=== PATIENT | female | born 2000 | race Caucasian/White ===

== ENCOUNTER 2022-07-12 14:03 | Emergency (ER) | payer OTHER, SELFPAY ==
--- NOTE | 2022-07-12 14:21 | ED.WOUNDLAC ---
HPI - Wound/Laceration General Chief Complaint: Wound/Laceration Stated Complaint: left arm dog bite Time Seen by Provider: 07/12/22 14:20 Source: patient Mode of arrival: ambulatory Limitations: no limitations History of Present Illness HPI narrative: is a 22-year-old female presents from home after she tried to [place] break up an altercation between her dog and another and her dog snapped at her causing a small non gaping laceration to the anterior surface of her left wrist with mild swelling and tenderness, has good range of motion no numbness or tingling. The patient is not up-to-date with her tetanus. Onset (ago): hour(s) Extremity Location: Left: wrist ( 0.5 non gaping laceration) Place: home and outdoors Context: accidental Related Data Home Medications Medication Instructions Recorded Confirmed No Home Medications 07/12/22 07/12/22 Review of Systems Review of Systems: All systems reviewed & are unremarkable except as noted in HPI and below PMFSH Past Medical History Medical History Patient denies medical problems Exam Const: General: cooperative and anxious HENMT: Head: normal to inspection Ears: hearing grossly normal bilaterally Face and sinus: normal facial exam Mouth: Yes Normal oral and palatal mucosa present Throat: posterior oropharynx normal Eyes: General: appearance normal, both eyes and all related structures Visual Hernández: normal visual hernández by confrontation Alignment and Position: alignment normal Periorbital: periorbital findings normal Eyelids: eyelids normal Neck: Neck: normal visual inspection Thyroid: thyroid normal Carotids: normal carotid upstroke Chest: Chest palpation & inspection: normal inspection of the chest Resp: Effort & Inspection: normal respiratory effort Auscultation: clear to auscultation bilaterally Cardio: Jugular venous distension: no JVD Palpation: normal PMI Rate: regular rate Rhythm: regular rhythm GI: Inspection: normal to inspection Urinary Catheter: Urinary Catheter: patent and draining Skin: Wounds: wounds noted Neuro: General: oriented to person and oriented to place Extrem: Hand/finger images: 1. 0.5cm non gaping laceration Psych: Appearance: grossly normal Course Course Emergency Course: Dermabond was placed on the laceration site and patient updated with her tetanus. An antibiotic sent to her local pharmacy. Procedures Laceration Laceration 1: Date: 07/12/22 Time: 14:26 Site: upper extremity Side (If applicable): left Size (cm): 0.5 Description: linear Pre-repair: wound explored and irrigated ====== Skin Level ====== Skin layer closed with: dermabond ====== Subcutaneous Layer ====== ====== Muscle Layer ====== ====== Tendon Layer ====== Critical Care Time Critical Care Time Critical Care Time: No Discharge Plan Discharge Clinical Impression: Dog bite, Puncture wound Patient Disposition: Home, Self-Care Condition: Stable Instructions: Antibiotic Form, Animal Bite (ED), Puncture Wound (ED) Additional Instructions: take medicine as prescribed and follow-up with primary care physician if symptoms persist or worsen. Prescriptions: New sulfamethoxazole-trimethoprim [Bactrim DS] 800-160 mg tablet 1 tablet PO Q12H Qty: 20 0RF No Action No Home Medications Follow-up/Referrals: UNKNOWN,DOCTOR [Primary Care Provider] - Time of Disposition: :
[2022-07-12] MEDS: TETANUS,DIPHTHERIA,AC PERTUSSIS ADULT 0.5 ML (ADACEL) IM (14:35)
[2022-07-12 14:36] VITALS: BP 134/94; PULSE 97; RESP 20; TEMP 36.6; O2SAT 97
== END 2022-07-12 14:41 | disposition home or self-care (01) ==
LOC: CHSED 14:34
PROVIDERS: Emergency Provider Emergency Medicine
DX: S61.552A Open bite of left wrist, initial encounter (principal); W54.0XXA Bitten by dog, initial encounter; Z23 Encounter for immunization
CPT/HCPCS: 12001; 90471; 90715; 99283